=== PATIENT | female | born 1970 | race Asian ===

== ENCOUNTER 2024-05-17 12:37 | Emergency (ER) | payer BC, SELFPAY ==
[2024-05-17 12:46] VITALS: BP 134/81
[2024-05-17 13:04] LABS: % Immature Granulocytes 0.2 % (0-0.5); % Lymphocytes 35.2 % (20.5-51.1); % Neutrophils 50.6 % (42.2-75.2); Absolute Basophils 0.1 10^3/uL (0-0.2); Absolute Eosinophils 0.4 10^3/uL (0-0.7); Absolute Lymphocytes 2.1 10^3/uL (1.2-3.4); Absolute Monocytes 0.4 10^3/uL (0.1-0.6); Hematocrit 35.7 % (37.0-47.0); Hemoglobin 12.6 g/dL (12.0-16.0); Mean Corp Hgb Conc. 35.3 g/dL (33.0-37.0); Mean Corpuscular Hgb 32.2 pg (27.0-31.0); Mean Corpuscular Volume 91.3 fL (81.0-99.0); Mean Platelet Volume 10.2 fL (7.4-10.4); Nucleated Red Blood Cells % 0 %; Platelet Count 243 10^3/uL (130-400); Red Blood Cell Count 3.91 10^6/uL (4.20-5.40); Red Cell Dist. Width 12.3 % (11.5-14.5)
[2024-05-17 13:18] LABS: ALT (SGPT) 15 U/L (0-35); AST (SGOT) 23 U/L (14-36); Albumin 4.6 g/dl (3.5-5.0); Alkaline Phosphatase 48 U/L (38-126); Blood Urea Nitrogen 15 mg/dl (7-17); Calcium 9.6 mg/dl (8.4-10.2); Carbon Dioxide 25 mmol/L (22-30); Chloride 103 mmol/L (98-107); Glucose 98 mg/dl (70-99); Potassium 4.1 mmol/L (3.5-5.1); Sodium 136 mmol/L (135-145); Total Bilirubin 0.5 mg/dl (0.2-1.3); Total Protein 7.6 g/dl (6.3-8.2); eGFR > 60.00
[2024-05-17 13:26] LABS: HCG, Serum Qualitative Screen Negative
--- NOTE | 2024-05-17 14:49 | ED.GENMED ---
History of Present Illness
General
Chief Complaint: Vaginal Bleeding
Source: patient
Time Seen by Provider: 05/17/24 14:02
History of Present Illness
History of Present Illness:
53yoF with a history of hyperlipidemia managed with supplements presenting with her for evaluation of vaginal bleeding. Patient has been having vaginal bleeding since 04/05/24. She reports that the bleeding is minor and she typically uses a
paper towel in her underwear and goes through 1 paper towel a day. She reports some nausea and lightheadedness while at work today so she decided to come to the ED. She also reports lightheadedness and some fatigue. No syncope, chest pain, shortness
of breath. Her menses have been very irregular the past several months. Last pap smear was 2 years ago which was normal.
Phy Exam
General Physical Exam
General Presentation: well appearing and no apparent distress
General age: appears stated age
General Skin: warm and dry
General Habitus: normal
General Mental: alert
Cardiovascular Exam
Cardiovascular Exam: regular rate/rhythm and no murmur
Pulmonary Exam
Pulmonary Exam: lungs clear, no respiratory distress, no crackles and no wheezing
Gastrointestinal Exam
Gastrointestinal Exam: non tender, soft and non distended
Skin Exam
Skin Exam: normal color and warm/dry
Psychiatric Exam
Psychiatric Exam: normal mood/affect
Course
Orders/Labs/Results
Orders:
Orders
05/17/24 12:50
Test Result ONCE
05/17/24 12:53
Complete Blood Count/With Diff Urgent
Comprehensive Metabolic Panel Urgent
HCG, Serum Qualitative Screen Urgent
05/17/24 14:49
Electrocardiogram (*1) Urgent
Reason for Study: Fatigue / Weakness
EKG- Treatment ONCE
Pelvis & Transvaginal US [US Pelvis W Transvag Combined] Urgent
Comment:
Reason For Exam: Vaginal bleeding x 6 weeks
05/17/24 15:11
TSH Reflex To Free T4 Urgent
Troponin I Urgent
05/17/24 17:02
0.9% Sodium Chloride 1000 ml [Nss] 1,000 ml IV BOLUS
Abnormal Lab Results
05/17/24
12:53
RBC 3.91 L 10^6/uL
(4.20-5.40)
Hct 35.7 L %
(37.0-47.0)
MCH 32.2 H pg
(27.0-31.0)
Eosinophils % 7.0 H %
(0-6)
05/17/24 12:53
05/17/24 12:53
Vital Signs
Initial and Last Documented VS:
Initial Vital Signs
Temp Pulse Resp BP Pulse Ox
97.9 F 50 16 134/81 100
05/17/24 12:46 05/17/24 12:46 05/17/24 12:46 05/17/24 12:46 05/17/24 12:46
Last Documented Vital Signs
Temp Pulse Resp BP Pulse Ox
97.9 F 58 17 128/72 100
05/17/24 12:46 05/17/24 18:51 05/17/24 18:45 05/17/24 19:00 05/17/24 12:46
MDM/Problems Addressed
Differential Diagnosis Includes:
53yoF here with vaginal bleeding x 6 weeks. Light bleeding, not using pads or tampons currently. C/o fatigue and nausea. She is afebrile and hemodynamically stable. She is well appearing in no distress. Abdominal exam is benign. Differential
diagnosis includes but is not limited to: perimenopause, dysfunction uterine bleeding, thyroid dysfunction, anemia
Initial ED plan: Check cardiac labs, TSH, HCG, EKG, and pelvic ultrasound.
*EKG
Interpreted by ED Provider?: Yes
EKG Intrepretation Date: 05/17/24
Heart Rate: 48
Rate: bradycardiac
Rhythm: sinus
[place]: normal axis
Interval: normal interval
QRS Pattern: low voltage
Ischemia: no ischemia
*Critical Care Note
Total Time (30-74mins, 75-104mins- exclusive of procedures): Not Applicable
Update Note
Update Note:
Hemoglobin normal at 12.6. HCG negative. TSH normal. EKG shows sinus bradycardia without ischemic changes and troponin WNL. Pelvic ultrasound shows uterine fibroids as well as suspected hemorrhagic cyst of R ovary for which repeat US recommended in
6-8 weeks. Patient provided with copy of US report and she was informed of need for repeat ultrasound as an outpatient. No indication for admission. She was advised to f/u with OBGYN. ED return precautions discussed. She was discharged in stable
condition.
ED Attending Note
-
Portions of this chart may have been created with voice recognition software.� Occasional wrong word or��sound alike� substitutions may have occurred due to the inherent limitations of voice recognition software.
Discharge Plan
Departure
Patient Disposition: Home (Routine Discharge)
Date of Disposition: 05/17/24
Time of Disposition: 18:52
Patient with high blood pressure during this ER visit?: No
Discharge Problem:
Dysfunctional uterine bleeding, Cyst of right ovary
Instructions: Heavy Periods (DC)
Referrals:
Brittni Joyce MD [Active] -
Andie Cervantes CRNP [Family Provider] -
Activity Restrictions/Additional Instructions:
Please follow-up with OBGYN. Return to the ER with any new or worsening symptoms.
You will need a repeat pelvic ultrasound in 6-8 weeks to follow up on the cyst seen on your right ovary.
Interventions
Interventions:
*Risk Screen - Suicide Last Done: 05/17/24 14:54
*General Assessment Last Done: 05/17/24 14:54
*Neglect/Abuse Screening Last Done: 05/17/24 14:54
ED- Fall Risk Assessment Last Done: 05/17/24 14:54
*ED COVID-19 Vaccine History Last Done: 05/17/24 14:54
*Nursing Disposition Last Done: 05/17/24 19:04
ED-Female Genitourinary Assessment Last Done: 05/17/24 17:40
Discharge Date and Time
Discharge Date/Time: 05/17/24 19:05
Print Language: [place]
[2024-05-17 14:53] VITALS: BMI 24.2
[2024-05-17 15:00] VITALS: BP 122/72
[2024-05-17 15:52] LABS: Troponin I < 0.012 ng/ml
[2024-05-17 16:00] VITALS: BP 107/72
[2024-05-17 16:11] LABS: TSH Reflex To Free T4 1.82 uIU/ml (0.47-4.68)
[2024-05-17 17:00] VITALS: BP 125/75
[2024-05-17 19:00] VITALS: BP 128/72
== END 2024-05-17 19:05 | disposition home or self-care (01) ==
LOC: EMR 12:37
PROVIDERS: Emergency Medicine; Physician Assistant; EMERGENCY PHYSICIAN Student in an Organized Health Care Education/Training Program; FAMILY PHYSICIAN Nurse Practitioner Family
DX: N93.8 Other specified abnormal uterine and vaginal bleeding (principal); N83.201 Unspecified ovarian cyst, right side
CPT/HCPCS: 99285; 76830; 76856; 80053; 84443; 84484; 84703; 85025; 93005

== ENCOUNTER → 2024-08-03 10:14 | Outpatient (REF) | payer BC, SELFPAY | LOC: HWRAD 10:14 | PROVIDERS: ATTENDING PHYSICIAN Advanced Practice Midwife; FAMILY PHYSICIAN Nurse Practitioner Family | DX: N95.1 Menopausal and female climacteric states (principal) | CPT/HCPCS: 76830; 76856 ==